=== PATIENT | male | born 2000 | race Caucasian/White ===

== ENCOUNTER → 2021-03-22 | Outpatient (CLI) | payer OTHER ==
[~2021-03-22] MED LIST: FLAGYL500 MG PO; PHENERGAN 25 MG25 M1 GT; ZOFRAN 4 MG4 MG/5 M1 GT
== END ==
LOC: EXRD 10:26
DX: K83.1 Obstruction of bile duct (principal); K94.29 Other complications of gastrostomy
CPT/HCPCS: 76705

== ENCOUNTER → 2021-11-19 | Outpatient (CLI) | payer OTHER ==
[2021-11-19 16:32] LABS: HEMOGLOBIN 12.1 gm/dl (14.0-17.5); RED BLOOD COUNT 4.49 M/UL (4.20-5.50); WHITE BLOOD COUNT 4.4 K/UL (4.5-11.0)
[2021-11-19 16:51] LABS: BUN/CREATININE RATIO 34 (0-10)
== END ==
LOC: LAB 16:10
PROVIDERS: Internal Medicine Gastroenterology
DX: K91.2 Postsurgical malabsorption, not elsewhere classified (principal)
CPT/HCPCS: 80053; 80061; 82330; 83735; 84100; 84134; 85025

== ENCOUNTER → 2022-01-28 | Outpatient (CLI) | payer OTHER ==
[2022-01-28 16:25] LABS: HEMOGLOBIN 12.3 gm/dl (14.0-17.5); RED BLOOD COUNT 4.63 M/UL (4.20-5.50); WHITE BLOOD COUNT 4.6 K/UL (4.5-11.0)
[2022-01-28 16:45] LABS: BUN/CREATININE RATIO 30 (0-10)
== END ==
LOC: LAB 15:32
PROVIDERS: Internal Medicine Gastroenterology
DX: K91.2 Postsurgical malabsorption, not elsewhere classified (principal)
CPT/HCPCS: 80053; 80061; 82330; 83735; 84100; 85025

== ENCOUNTER → 2022-07-24 | Outpatient (CLI) | payer OTHER ==
[~2022-07-24] VITALS: Ht 175.3 cm; Wt 55.8 kg
== END ==
LOC: EROP 11:11
DX: U07.1 COVID-19 (principal); Z23 Encounter for immunization
CPT/HCPCS: M0222; Q0222